=== PATIENT | female | born 1955 | race Caucasian/White ===

== ENCOUNTER 2019-01-17 10:12 | Outpatient (CLI) | payer BC ==
--- NOTE | 2019-01-17 11:46 | BD ---
DEXA BONE DENSITY STUDY: Date: 01/17/19 HISTORY: 63-year-old postmenopausal female for screening. Patient has had prior fusion of L2 and L3. FINDINGS: Lumbar Spine: BMD (g/cm2) L1 0.944 T-Score: -0.4 L4 0.897 T-Score: -1.5 Left Femoral Neck: 0.731 T-Score: -1.1 Total Femur: 0.909 T-Score: -0.3 Left Forearm: Distal 1/3 0.598 T-Score: -1.6 Total Distal 0.492 T-Score: -1.6 IMPRESSION: Osteopenia. This patient has a 10 year WHO fracture risk of a major osteoporotic fracture of 12% and of a hip fracture of 0.8%. POS: HEATHER
== END 2019-01-17 10:13 | disposition home or self-care (01) ==
LOC: BICMAMMO 10:12
PROVIDERS: ATTEND Internal Medicine Endocrinology, Diabetes & Metabolism
DX: Z13.820 Encounter for screening for osteoporosis (principal); E21.3 Hyperparathyroidism, unspecified; M85.89 Other specified disorders of bone density and structure, multiple sites; Z98.1 Arthrodesis status; Z87.442 Personal history of urinary calculi
CPT/HCPCS: 77080